=== PATIENT | female | born 1965 | race Caucasian/White ===

== ENCOUNTER 2017-06-24 19:21 | Emergency (ER) | payer OTHER ==
--- NOTE | 2017-06-24 19:45 | PDOC ---
Rapid Medical Evaluation Time Seen by Provider: 06/24/17 19:45 Medical Evaluation: 06/24/17 19:45 I have performed a brief in-person evaluation of this patient. The patient presents with a chief complaint of: Lower back pain w/ possible numbness/tingling to legs of unclear duration. Dizziness w/ near syncope tonight. No CP or SOB. H/o chronic LBP Pertinent physical exam findings:Stable w/ unremarkable exam I have ordered the following:labs/ekg The patient will proceed to the ED for further evaluation. Discharge Disposition - Diagnosis Back pain Qualifiers: Back pain location: low back pain Chronicity: chronic Back pain laterality: unspecified Sciatica presence: without sciatica Qualified Code(s): M54.5 - Low back pain; G89.29 - Other chronic pain; G89.29 - Other chronic pain - Referrals - Patient Instructions - Post Discharge Activity
[2017-06-24 19:57] VITALS: BMI 17.2
--- NOTE | 2017-06-24 20:39 | PDOC ---
History of Present Illness - General Chief Complaint: Pain Stated Complaint: BACK PAIN Time Seen by Provider: 06/24/17 19:45 History Source: Patient - History of Present Illness Initial Comments: 06/24/17 20:37 51 year old female at 5.30pm with sudden onset weakness, dizziness and nausea almost near syncope as per patient. patient reports that she has been stressed at work working long hours recently for several month have been having . Patient reports generalized weakness, nausea at this time, No Past medical history NIH Stroke Scale - Last Known Well Date/Time & Onset Date Last Known Well: 06/24/17 Time Last Known Well: 17:30 - Initial Evaluation Level of consciousness: Alert Ask patient the month and their age: Answers both correctly Ask patient to open & close eyes; make fist and let go: Obeys both correctly Best gaze (horizontal eye movement): Normal Visual field testing: No visual field loss Facial paresis (Show teeth/raise eyebrows/close eyes tight): Normal symmetrical movement Motor Function: Left Arm: Normal Motor Function: Right Arm: Normal (extends arm 90 (or 45) degrees for 10 seconds without drift Motor Function: Left Leg: Drift Motor Function: Right Leg: Normal (extends leg 30 degrees for 5 seconds without drift) Limb Ataxia: Present in two limbs Sensory(Use pinprick test arms,legs,trunk,face/side to side): Mild to moderate decrease in sensation Best language (Describe picture, name items, read sentences): No Aphasia Dysarthria (read several words): Normal articulation Extinction and Inattention: No abnormality - Total Score NIH Stroke Scale Score: 4 Past History - Past Medical History Allergies/Adverse Reactions: Allergies Allergy/AdvReac Type Severity Reaction Status Date / Time levofloxacin [From Levaquin] Allergy Severe Hives Verified 06/24/17 19:56 metronidazole [From Flagyl] Allergy Severe Hives Verified 06/24/17 19:56 Home Medications: Ambulatory Orders NK [No Known Home Medication] 06/24/17 COPD: Yes Other medical history: Pt denies - Surgical History Neurologic Surgery: Yes (Craneotomy) - Suicide/Smoking/Psychosocial Hx Smoking History: Never smoked Have you smoked in the past 12 months: No Information on smoking cessation initiated: No Hx Alcohol Use: No Drug/Substance Use Hx: No Substance Use Type: None Review of Systems - Review of Systems Able to Perform ROS?: Yes Is the patient limited Scottish proficient: No ABD/GI: Yes: Nausea Musculoskeletal: Yes: Muscle Weakness Integumentary: No: Symptoms Reported, See HPI, Bruising, Change in Color, Change in Hair/Nails, Dryness, Erythema, Flushing, Lesions, Lumps, Pallor, Pruritus, Rash, Sweating, Other Neurological: Yes: Headache, Paresthesia (left side) *Physical Exam - Vital Signs Last Vital Signs Temp Pulse Resp BP Pulse Ox 98.0 F 95 H 20 121/81 98 06/24/17 19:53 06/24/17 19:53 06/24/17 19:53 06/24/17 19:53 06/24/17 19:53 - Physical Exam General Appearance: Yes: Appropriately Dressed Respiratory/Chest: positive: Lungs Clear, Normal Breath Sounds Cardiovascular: positive: Regular Rhythm, Regular Rate Gastrointestinal/Abdominal: positive: Normal Bowel Sounds, Soft Musculoskeletal: positive: Normal Inspection Extremity: positive: Normal Capillary Refill, Normal Inspection, Normal Range of Motion Integumentary: positive: Normal Color, Dry, Warm Neurologic: positive: Alert, Other (See NIHSS) Heart Score/ECG Review - ECG Intrepretation Rhythm: Regular Rhythm Comment:: 06/25/17 01:48 76 bpm ED Treatment Course - LABORATORY CBC & Chemistry Diagram: 06/24/17 22:50 06/24/17 22:50 - RADIOLOGY Radiology Studies Ordered: Category Date Time Status HEAD CT (STROKE) [CT] Stat CT Scan 06/24/17 20:37 Ordered *DC/Admit/Observation/Transfer Diagnosis at time of Disposition: Weakness generalized, Vasovagal near syncope Back pain Qualifiers: Back pain location: low back pain Chronicity: chronic Back pain laterality: unspecified Sciatica presence: without sciatica Qualified Code(s): M54.5 - Low back pain - Discharge Dispostion Disposition: HOME - Referrals Referrals: ON STAFF,NOT [Primary Care Provider] - - Patient Instructions Printed Discharge Instructions: DI for Syncope in Adults (Fainting) Additional Instructions: drink plenty of fluids. follow up with your doctor as soon as possible. return to the ER if symptoms worsen. - Post Discharge Activity Forms/Work/School Notes: Back to Work
--- NOTE | 2017-06-24 21:07 | PDOC ---
*Physical Exam - Vital Signs Last Vital Signs Temp Pulse Resp BP Pulse Ox 98.0 F 95 H 20 121/81 98 06/24/17 19:53 06/24/17 19:53 06/24/17 19:53 06/24/17 19:53 06/24/17 19:53 Medical Decision Making - Medical Decision Making 06/24/17 21:06 agree with care from BOB Sosa *DC/Admit/Observation/Transfer Diagnosis at time of Disposition: Back pain Qualifiers: Back pain location: low back pain Chronicity: chronic Back pain laterality: unspecified Sciatica presence: without sciatica Qualified Code(s): M54.5 - Low back pain - Referrals Referrals: ON STAFF,NOT [Primary Care Provider] - - Patient Instructions - Post Discharge Activity
[2017-06-24] MEDS ORDERED: SODIUM CHLORIDE 0.9% 500 ML INFUS.BAG IV ONE (21:56)
[2017-06-24] MEDS ORDERED: ONDANSETRON 4 MG/2 ML VIAL IVPUSH ONE (21:56)
[2017-06-24] MEDS ORDERED: ONDANSETRON 4 MG/2 ML VIAL ONE (22:18)
[2017-06-24 23:00] LABS: BASO % 0.5 % (0-2.0); EOS % 0.2 % (0-4.5); HEMATOCRIT 35.4 % (32.4-45.2); HEMOGLOBIN 12.6 GM/dL (10.7-15.3); LYMPH % 12.4 % (8-40); MCH 30.8 pg (25.7-33.7); MCHC 35.5 g/dl (32.0-36.0); MEAN CELL VOLUME 86.9 fl (80-96); MEAN PLT VOLUME 9.5 fl (7.5-11.1); MONO % 3.6 % (3.8-10.2); NEUT % 83.3 % (42.8-82.8); PLATELET COUNT 182 K/MM3 (134-434); RBC 4.08 M/mm3 (3.60-5.2); RDW 12.4 % (11.6-15.6); WHITE BLOOD COUNT 6.1 K/mm3 (4.0-10.0)
[2017-06-24 23:44] LABS: ALBUMIN 4.5 g/dl (3.4-5.0); ANION GAP 8 (8-16); CALCIUM 9.9 mg/dL (8.5-10.1); CHLORIDE 105 mmol/L (98-107); CO2 28 mmol/L (21-32); GLUCOSE,RANDOM 140 mg/dL (74-106); POTASSIUM 4.1 mmol/L (3.5-5.1); SODIUM 141 mmol/L (136-145)
[2017-06-24 23:47] LABS: ALK PHOS 71 U/L (45-117); BILIRUBIN,TOTAL 0.4 mg/dL (0.2-1.0); CREATININE 0.7 mg/dL (0.55-1.02); SGOT/AST 14 U/L (15-37); SGPT/ALT 22 U/L (12-78); TOT PROT 7.3 g/dl (6.4-8.2)
[2017-06-25 00:42] LABS: BLOOD UREA NITROGEN 26 mg/dL (7-18)
[2017-06-25 00:52] LABS: URINE APPEARANCE CLEAR; URINE BILIRUBIN NEGATIVE (<2.0 mg/dL); URINE BLOOD 3+ (NEGATIVE); URINE COLOR STRAW; URINE GLUCOSE (UA) NEGATIVE (NEGATIVE); URINE KETONE NEGATIVE (NEGATIVE); URINE LEUK ESTERASE NEGATIVE (NEGATIVE); URINE NITRITE NEGATIVE (NEGATIVE); URINE PROTEIN NEGATIVE (NEGATIVE); URINE UROBILINOGEN NEGATIVE mg/dL (0.2-1.0)
[2017-06-25 01:11] LABS: URINE BACTERIA RARE /hpf (NONE SEEN)
[2017-06-25 02:59] VITALS: BP 117/67; PULSE 79; TEMP 98.1
--- NOTE | 2017-06-25 11:39 | EKG ---
Test Reason : Blood Pressure : / mmHG Vent. Rate : 076 BPM Atrial Rate : 076 BPM P-R Int : 138 ms QRS Dur : 072 ms QT Int : 384 ms P-R-T Axes : 067 069 063 degrees QTc Int : 432 ms NORMAL SINUS RHYTHM POSSIBLE LEFT ATRIAL ENLARGEMENT BORDERLINE ECG NO PREVIOUS ECGS AVAILABLE Confirmed by EDIN FITZPATRICK, JONNATHAN ([id number]) on 06/25/2017 11:39:36 AM Referred By: Confirmed By:JONNATHAN JESUS MD
== END 2017-06-25 03:06 | disposition home or self-care (01) ==
LOC: JER 19:21
PROC: 3E033GC Introduction of Other Therapeutic Substance into Peripheral Vein, Percutaneous Approach (ICD-10-PCS; principal; 2017-06-24)
PROC: 3E0337Z Introduction of Electrolytic and Water Balance Substance into Peripheral Vein, Percutaneous Approach (ICD-10-PCS; 2017-06-24)
DX: M54.5 Low back pain (principal); G89.29 Other chronic pain
CPT/HCPCS: 36415; 70450-TC; 80053; 81003; 81015; 82550; 84484; 84703; 85025; 93005; 93010; 99282-25